=== PATIENT | male | born 1980 | race Hispanic/Latino ===

== ENCOUNTER 2018-06-19 13:31 | Emergency (ER) | payer SELFPAY ==
[2018-06-19] MEDS ORDERED: ACETAMINOPHEN EXTRA STRENGTH 500 MG TABLET ONE (14:03)
[2018-06-19] MEDS ORDERED: CEFTRIAXONE SODIUM 1 GM ONE (15:06)
[2018-06-19] MEDS ORDERED: LIDOCAINE HCL-MPF 1% 2ML VIAL ONE (15:07)
== END 2018-06-19 15:16 | disposition home or self-care (01) ==
LOC: EDH 13:31
DX: J11.1 Influenza due to unidentified influenza virus with other respiratory manifestations (principal); M79.10 Myalgia, unspecified site; Z72.0 Tobacco use
CPT/HCPCS: 87804 ×2; 96372; 99284; J0696; J3490